=== PATIENT | male | born 1930 | race Caucasian/White ===

== ENCOUNTER → 2016-08-04 | Outpatient (CLI) | payer MEDICARE ==
[~2016-08-04] MED LIST: OFLO.3%A AD
[2016-08-04 10:55] LABS: HEMATOCRIT 42.9 % (39.0-51.0); MEAN CORPUSCULAR HEMOGLOBIN 30.6 PG (27.0-34.0); MEAN CORPUSCULAR HGB CONC 33.6 % (32.0-36.0); PLATELET COUNT 210 TH/MM3 (150-450); RED BLOOD COUNT 4.72 MIL/MM3 (4.50-5.90); REVIEW FLAG FINAL; WHITE BLOOD COUNT 6.7 TH/MM3 (4.0-11.0)
[2016-08-04 11:32] LABS: ALKALINE PHOSPHATASE 75 U/L (45-117); ALT (GPT) 22 U/L (12-78); ANION GAP 5 MEQ/L (5-15); AST (GOT) 27 U/L (15-37); BICARBONATE 30.8 MEQ/L (21.0-32.0); BLOOD UREA NITROGEN 22 MG/DL (7-18); CHLORIDE 105 MEQ/L (98-107); GLOMERULAR FILTRATION RATE 64 ML/MIN (>89); GLUCOSE,FASTING 86 MG/DL (74-99); HDL CHOLESTEROL 58.7 MG/DL (40.0-60.0); LDL CHOLESTEROL 119 MG/DL (0-99); POTASSIUM 4.2 MEQ/L (3.5-5.1); SODIUM (NA) 141 MEQ/L (136-145); TOTAL BILIRUBIN ADULT 0.7 MG/DL (0.2-1.0)
== END ==
LOC: PLAB 08:07
PROVIDERS: ATTEND Family Medicine
DX: E78.4 Other hyperlipidemia (principal); C61 Malignant neoplasm of prostate; C18.9 Malignant neoplasm of colon, unspecified; I83.10 Varicose veins of unspecified lower extremity with inflammation
CPT/HCPCS: 36415; 80053; 80061; 84443; 85027

== ENCOUNTER → 2017-02-04 | Outpatient (CLI) | payer MEDICARE ==
[2017-02-04 13:35] LABS: HEMATOCRIT 45.1 % (39.0-51.0); MEAN CELL VOLUME 94.4 FL (80.0-100.0); MEAN CORPUSCULAR HGB CONC 32.8 % (32.0-36.0); PLATELET COUNT 281 TH/MM3 (150-450); RED BLOOD COUNT 4.78 MIL/MM3 (4.50-5.90); RED CELL DISTRIBUTION WIDTH 14.6 % (11.6-17.2); REVIEW FLAG FINAL
[2017-02-04 14:06] LABS: ANION GAP 8 MEQ/L (5-15); AST (GOT) 23 U/L (15-37); BICARBONATE 29.5 MEQ/L (21.0-32.0); BLOOD UREA NITROGEN 13 MG/DL (7-18); CHLORIDE 101 MEQ/L (98-107); GLOMERULAR FILTRATION RATE 79 ML/MIN (>89); GLUCOSE,FASTING 87 MG/DL (74-99); POTASSIUM 4.6 MEQ/L (3.5-5.1); SODIUM (NA) 138 MEQ/L (136-145)
[2017-02-04 14:19] LABS: ALKALINE PHOSPHATASE 70 U/L (45-117); ALT (GPT) 23 U/L (12-78); HDL CHOLESTEROL 58.5 MG/DL (40.0-60.0); LDL CHOLESTEROL 125 MG/DL (0-99); TOTAL BILIRUBIN ADULT 0.6 MG/DL (0.2-1.0)
== END ==
LOC: PLAB 08:09
PROVIDERS: ATTEND Family Medicine
DX: E78.4 Other hyperlipidemia (principal); C61 Malignant neoplasm of prostate; C18.9 Malignant neoplasm of colon, unspecified; I83.10 Varicose veins of unspecified lower extremity with inflammation
CPT/HCPCS: 36415; 80053; 80061; 84443; 85027

== ENCOUNTER → 2017-03-07 | Outpatient (CLI) | payer MEDICARE ==
[2017-03-07 14:55] LABS: FREE T3 2.85 PG/ML (2.18-3.98); FREE T4 0.97 NG/DL (0.76-1.46)
[2017-03-10 23:51] LABS: THYROGLOB ABS 1 IU/mL (< OR = 1)
== END ==
LOC: CLAB 13:54
PROVIDERS: ATTEND Family Medicine
DX: R94.6 Abnormal results of thyroid function studies (principal); C18.9 Malignant neoplasm of colon, unspecified; Z12.5 Encounter for screening for malignant neoplasm of prostate
CPT/HCPCS: 36415; 84153; 84439; 84443; 84481; 86376; 86800

== ENCOUNTER → 2017-07-06 | Outpatient (CLI) | payer MEDICARE ==
[~2017-07-06] MED LIST changes: +ASPI81CH6 PO
[2017-07-06 18:18] LABS: AUTOMATED NEUTROPHIL # 5.8 TH/MM3 (1.8-7.7); BASOPHIL % 0.3 % (0.0-2.0); EOSINOPHIL # 0.2 TH/MM3 (0-0.4); EOSINOPHIL % 2.6 % (0.0-4.0); HEMATOCRIT 43.7 % (39.0-51.0); HEMOGLOBIN 14.7 GM/DL (13.0-17.0); LYMPHOCYTE # 1.6 TH/MM3 (1.0-4.8); MEAN CELL VOLUME 92.4 FL (80.0-100.0); MEAN CORPUSCULAR HEMOGLOBIN 31.1 PG (27.0-34.0); MEAN CORPUSCULAR HGB CONC 33.7 % (32.0-36.0); MEAN PLATELET VOLUME 8.7 FL (7.0-11.0); MONO % 9.1 % (0.0-8.0); MONOCYTE # 0.8 TH/MM3 (0-0.9); PLATELET COUNT 268 TH/MM3 (150-450); RED BLOOD COUNT 4.73 MIL/MM3 (4.50-5.90); WHITE BLOOD COUNT 8.3 TH/MM3 (4.0-11.0)
[2017-07-06 18:36] LABS: ALBUMIN 3.8 GM/DL (3.4-5.0); AST (GOT) 19 U/L (15-37); BICARBONATE 29.8 MEQ/L (21.0-32.0); BLOOD UREA NITROGEN 18 MG/DL (7-18); CALCIUM 9.7 MG/DL (8.5-10.1); CHLORIDE 101 MEQ/L (98-107); CREATININE 1.18 MG/DL (0.60-1.30); GLOMERULAR FILTRATION RATE 59 ML/MIN (>89); GLUCOSE,FASTING 84 MG/DL (74-99); SODIUM (NA) 137 MEQ/L (136-145)
[2017-07-06 18:39] LABS: ALKALINE PHOSPHATASE 70 U/L (45-117); ALT (GPT) 16 U/L (12-78); TOTAL BILIRUBIN ADULT 0.7 MG/DL (0.2-1.0); TOTAL PROTEIN 8.3 GM/DL (6.4-8.2)
== END ==
LOC: PLAB 12:25
PROVIDERS: ATTEND Physician Assistant Medical
DX: R19.7 Diarrhea, unspecified (principal); R10.30 Lower abdominal pain, unspecified
CPT/HCPCS: 36415; 80053; 85025

== ENCOUNTER 2017-07-07 14:25 | Inpatient (IN) | payer MEDICARE ==
[~2017-07-07] VITALS: Ht 190.5 cm; Wt 70.8 kg
[~2017-07-07 14:25] MED LIST changes: -ASPI81CH6 PO
[2017-07-07 14:30] VITALS: BP 145/74; PULSE 103; RESP 16; TEMP 97.9; O2SAT 93
--- NOTE | 2017-07-07 14:52 | PD ---
HPI Chief Complaint: Abdominal Pain Time Seen by Provider: 14:51 Travel History International Travel<30 days: No Contact w/Intl Traveler<30days: No Traveled to known affect area: No History of Present Illness HPI 86-year-old male came to the emergency room with history of nausea, vomiting and diarrhea for past 3-4 days. Patient had a colonoscopy 10 days ago and the student services dean noted some diverticulosis and diverticulitis. Patient was put on Augmentin for 5 days. Patient says he finished taking the course of Augmentin and after that his symptoms started. He is feeling very bloated and abdomen looks distended. As per the he has not had any appetite since Tuesday. His last vomit was last night. But he has not eaten anything since then. Patient had slight tachycardia upon arrival. Patient just complains of some discomfort of his abdomen but no severe pain. He is awake and answering questions appropriately. PFSH Past Medical History Narrative Medical List of his past medical, surgical, social and family history is reviewed from the nursing note Hx Anticoagulant Therapy: Yes (asa 81mg) Cancer: Yes (PROSTATE, COLON, SKIN) Cardiovascular Problems: No Diabetes: No Diminished Hearing: Yes (hearing aids) Endocrine: No Genitourinary: No Hepatitis: No Hiatal Hernia: No Immune Disorder: No Musculoskeletal: Yes (NECK RESTRICTED MOTION) Neurologic: No Psychiatric: No Reproductive: No Respiratory: No Thyroid Disease: No Past Surgical History Abdominal Surgery: Yes (PARTIAL TRANSVERSE COLON RESECTION) AICD: No Joint Replacement: No Oral Surgery: Yes (TONSILLECTOMY) Pacemaker: No Other Surgery: Yes Social History Alcohol Use: Yes (occ) Tobacco Use: No Substance Use: No Allergies-Medications (Allergen,Severity, Reaction): Coded Allergies: No Known Allergies (Verified Adverse Reaction, Unknown, 07/07/17) Comments No known drug allergies per Reported Meds & Prescriptions Reported Meds & Active Scripts Active Reported Aspirin Low Dose (Aspirin) 81 Mg Chew 81 Mg PO DAILY Narrative Medication List of his home medications reviewed from the nursing note. Review of Systems Except as stated in HPI: all other systems reviewed are Neg Gastrointestinal: Positive: Nausea, Vomiting, Diarrhea Physical Exam Narrative GENERAL: Awake, alert, moderate distress SKIN: Focused skin assessment warm/dry. HEAD: Atraumatic. Normocephalic. EYES: Pupils equal and round. No scleral icterus. No injection or drainage. ENT: No nasal bleeding or discharge. Dry mucous membrane. NECK: Trachea midline. No JVD. CARDIOVASCULAR: Regular rate and rhythm. No murmur appreciated. RESPIRATORY: No accessory muscle use. Clear to auscultation. Breath sounds equal bilaterally. GASTROINTESTINAL: Abdomen soft, significantly distended. Hepatic and splenic margins not palpable. MUSCULOSKELETAL: No obvious deformities. No clubbing. No cyanosis. No edema. NEUROLOGICAL: Awake and alert. No obvious cranial nerve deficits. Motor grossly within normal limits. Normal speech. PSYCHIATRIC: Appropriate mood and affect; insight and judgment normal. Data Data Last Documented VS Vital Signs Date Time Temp Pulse Resp B/P (MAP) Pulse Ox O2 Delivery O2 Flow Rate FiO2 07/07/17 16:11 Nasal Cannula 2.00 07/07/17 16:10 85 16 120/62 (81) 88 07/07/17 14:30 97.9 Orders Orders Complete Blood Count With Diff (07/07/17 15:20) Comprehensive Metabolic Panel (07/07/17 15:20) Lipase (07/07/17 15:20) Urinalysis - C+S If Indicated (07/07/17 15:20) Ct Abd/Pel W/O Iv Contrast (07/07/17 15:20) Iv Access Insert/Monitor (07/07/17 15:20) Ecg Monitoring (07/07/17 15:20) Oximetry (07/07/17 15:20) Ondansetron Inj (Zofran Inj) (07/07/17 15:30) Sodium Chlor 0.9% 1000 Ml Inj (Ns 1000 M (07/07/17 15:20) Sodium Chloride 0.9% Flush (Ns Flush) (07/07/17 15:30) Admit Order (Ed Use Only) (07/07/17 17:43) Lidocaine 2% Jelly (Xylocaine 2% Jelly) (07/07/17 17:45) Labs Laboratory Tests Test 07/07/17 15:50 White Blood Count 7.3 TH/MM3 Red Blood Count 4.55 MIL/MM3 Hemoglobin 13.7 GM/DL Hematocrit 41.2 % Mean Corpuscular Volume 90.6 FL Mean Corpuscular Hemoglobin 30.1 PG Mean Corpuscular Hemoglobin Concent 33.2 % Red Cell Distribution Width 13.3 % Platelet Count 256 TH/MM3 Mean Platelet Volume 7.9 FL Neutrophils (%) (Auto) 68.9 % Lymphocytes (%) (Auto) 17.1 % Monocytes (%) (Auto) 9.3 % Eosinophils (%) (Auto) 4.1 % Basophils (%) (Auto) 0.6 % Neutrophils # (Auto) 5.0 TH/MM3 Lymphocytes # (Auto) 1.3 TH/MM3 Monocytes # (Auto) 0.7 TH/MM3 Eosinophils # (Auto) 0.3 TH/MM3 Basophils # (Auto) 0.0 TH/MM3 CBC Comment DIFF FINAL Differential Comment Urine Collection Type CLEAN CATCH Urine Color YELLOW Urine Turbidity CLEAR Urine pH 5.5 Urine Specific [place] 1.020 Urine Protein TRACE mg/dL Urine Glucose (UA) NEG mg/dL Urine Ketones NEG mg/dL Urine Occult Blood TRACE Urine Nitrite NEG Urine Bilirubin NEG Urine Urobilinogen 0.2 MG/DL Urine Leukocyte Esterase NEG Urine RBC 0-3 /hpf Urine WBC 0-2 /hpf Urine Squamous Epithelial Cells 6-8 /hpf Urine Renal Epithelial Cells 0-5 /hpf Microscopic Urinalysis Comment CULT NOT INDICATED Urine Collection Time 15:50 Blood Urea Nitrogen 16 MG/DL Creatinine 0.99 MG/DL Random Glucose 101 MG/DL Total Protein 7.6 GM/DL Albumin 3.3 GM/DL Calcium Level 9.2 MG/DL Alkaline Phosphatase 76 U/L Aspartate Amino Transf (AST/SGOT) 13 U/L Alanine Aminotransferase (ALT/SGPT) 13 U/L Total Bilirubin 0.6 MG/DL Sodium Level 134 MEQ/L Potassium Level 3.9 MEQ/L Chloride Level 100 MEQ/L Carbon Dioxide Level 27.4 MEQ/L Anion Gap 7 MEQ/L Estimat Glomerular Filtration Rate 72 ML/MIN Lipase 68 U/L [facility] Medical Decision Making Medical Screen Exam Complete: Yes Emergency Medical Condition: Yes Medical Record Reviewed: Yes Differential Diagnosis Small bowel obstruction, C. difficile colitis, dehydration, electrolyte abnormality Narrative Course 5:25 PM patient was given 1 L of IV fluid bolus. CT scan shows significantly distended bowel loops with the possibility of small bowel obstruction versus ileus. Blood test results are back and within acceptable limits. I have ordered for an NG tube. Patient will require to be admitted. Awaiting for the hospitalist callback. Procedures EKG Prior to Arrival: No Diagnosis Primary Impression: Small bowel obstruction Admitting Information Admitting Physician Requests: Admit Adalid Infante MD Jul 07, 2017 14:52
[2017-07-07] MEDS ORDERED: ASPI81CH6 PO (14:58)
[2017-07-07 15:11] VITALS: O2SAT 95
[2017-07-07] MEDS ORDERED: SODIUM CHLOR 0.9% 1000 ML INJ 1,000 ML IV SCH (15:20)
[2017-07-07] MEDS ORDERED: ONDANSETRON HCL 4 MG/2 ML VIAL IVP ONE (15:30)
[2017-07-07] MEDS ORDERED: SODIUM CHLORIDE 0.9% FLUSH 10 ML FLUSH IV FLUSH PRN (15:30)
[2017-07-07 16:05] LABS: BILIRUBIN, URINE NEG (NEG); BLOOD, URINE TRACE (NEG); GLUCOSE,URINE NEG (NEG); KETONE, URINE NEG (NEG); NITRITE,URINE NEG (NEG); PH, URINE 5.5 (5.0-8.5); URINE COLOR YELLOW (YELLW/STRAW); URINE LEUKOCYTE ESTERASE NEG (NEG)
[2017-07-07 16:08] LABS: BASOPHIL % 0.6 % (0.0-2.0); EOSINOPHIL # 0.3 TH/MM3 (0-0.4); EOSINOPHIL % 4.1 % (0.0-4.0); HEMATOCRIT 41.2 % (39.0-51.0); HEMOGLOBIN 13.7 GM/DL (13.0-17.0); LYMPH % 17.1 % (9.0-44.0); LYMPHOCYTE # 1.3 TH/MM3 (1.0-4.8); MEAN CELL VOLUME 90.6 FL (80.0-100.0); MEAN CORPUSCULAR HEMOGLOBIN 30.1 PG (27.0-34.0); MEAN CORPUSCULAR HGB CONC 33.2 % (32.0-36.0); MEAN PLATELET VOLUME 7.9 FL (7.0-11.0); MONO % 9.3 % (0.0-8.0); MONOCYTE # 0.7 TH/MM3 (0-0.9); NEUT % 68.9 % (16.0-70.0); PLATELET COUNT 256 TH/MM3 (150-450); RED BLOOD COUNT 4.55 MIL/MM3 (4.50-5.90); RED CELL DISTRIBUTION WIDTH 13.3 % (11.6-17.2); WHITE BLOOD COUNT 7.3 TH/MM3 (4.0-11.0)
[2017-07-07 16:10] VITALS: BP 120/62; PULSE 85; RESP 16; O2SAT 88
[2017-07-07 16:15] LABS: RBC, URINE 0-3 /hpf (0-3); RENAL EPITHELIAL CELLS 0-5 /hpf; WBC, URINE 0-2 /hpf (0-5)
[2017-07-07 16:20] LABS: CHLORIDE 100 MEQ/L (98-107); SODIUM (NA) 134 MEQ/L (136-145)
[2017-07-07 16:22] LABS: CALCIUM 9.2 MG/DL (8.5-10.1)
[2017-07-07 16:23] LABS: ALBUMIN 3.3 GM/DL (3.4-5.0); BICARBONATE 27.4 MEQ/L (21.0-32.0); BLOOD UREA NITROGEN 16 MG/DL (7-18); GLUCOSE,RANDOM 101 MG/DL (74-106)
[2017-07-07 16:26] LABS: ALT (GPT) 13 U/L (12-78); AST (GOT) 13 U/L (15-37); CREATININE 0.99 MG/DL (0.60-1.30); GLOMERULAR FILTRATION RATE 72 ML/MIN (>89)
[2017-07-07 16:27] LABS: TOTAL PROTEIN 7.6 GM/DL (6.4-8.2)
[2017-07-07 16:29] LABS: ALKALINE PHOSPHATASE 76 U/L (45-117)
[2017-07-07 16:39] LABS: TOTAL BILIRUBIN ADULT 0.6 MG/DL (0.2-1.0)
--- NOTE | 2017-07-07 16:48 | RADRPT ---
EXAM DATE/TIME: 07/07/2017 16:14 [facility] COMPARISON: No previous studies available for comparison. INDICATIONS : Mid abdominal pain x 1 week. Diarrhea. ORAL CONTRAST: No oral contrast ingested. RADIATION DOSE: 11.92 CTDIvol (mGy) MEDICAL HISTORY : Carcinoma, colon. Carcinoma, prostate. Pulmonary embolism. SURGICAL HISTORY : Colon resection. Appendectomy. ENCOUNTER: Initial ACUITY: 1 week PAIN SCALE: 6/10 LOCATION: Mid abdomen TECHNIQUE: Volumetric scanning of the abdomen and pelvis was performed. Using automated exposure control and ad justment of the mA and/or kV according to patient size, radiation dose was kept as low as reasonably achievable to obtain optimal diagnostic quality images. DICOM format image data is available electro nically for review and comparison. FINDINGS: LOWER LUNGS: Scattered emphysematous changes are noted bilaterally. LIVER: Homogeneous density without lesion. There is no dilation of the biliary tree. Calcified gallstones a re noted within the gallbladder. SPLEEN: Normal size without lesion. PANCREAS: Within normal limits. KIDNEYS: Normal in size and shape. There is no mass, stone, or hydronephrosis. ADRENAL GLANDS: Within normal limits. VASCULAR: There is no aortic aneurysm. BOWEL/MESENTERY: Multiple fluid-filled dilated loops of small bowel are noted suggesting small bowel obstruction or il eus. Clinical correlation is recommended. Uncomplicated colonic diverticulosis is noted. ABDOMINAL WALL: Within normal limits. RETROPERITONEUM: There is no lymphadenopathy. BLADDER: No wall thickening or mass. REPRODUCTIVE: Within normal limits. INGUINAL: There is no lymphadenopathy or hernia. MUSCULOSKELETAL: Degenerative changes and scoliosis of lumbar spine are noted. CONCLUSION: 1. Diffuse fluid-filled dilated loops of small bowel are noted suggesting small bowel obstruction or ileus. Clinical correlation is recommended. 2. Uncomplicated colonic diverticulosis. 3. Cholelithiasis. 4. Degenerative changes and scoliosis of the lumbar spine. 5. Emphysematous changes within the lung bases. Hiram Winston MD on July 07, 2017 at 16:39 Board Certified Radiologist. This report was verified electronically.
[2017-07-07] MEDS ORDERED: LIDOCAINE 2% JELLY 30 ML TUBE TOPICAL ONE (17:45)
--- NOTE | 2017-07-07 18:25 | HHI.HP ---
[facility] Nuzhat Garcia MD Admission Diagnosis Small bowel obstruct Diagnoses: (1) Small bowel obstruction Diagnosis: Principal Chief Complaint: Abdominal pain Travel History International Travel<30 Days: No Contact w/Intl Traveler <30 Da: No Traveled to Known Affected Are: No History of Present Illness 86-year-old male with known history of colon cancer, prostate cancer who presented to the emergency department because abdominal pain, bloating. Patient states that on June 20 he underwent colonoscopy with Dr. Pacheco. Patient underwent prep with mag citrate at that time. He was found to have diverticulosis and was started on antibiotics. Shortly after he completed the antibiotics which was roughly 6 days ago he started developing abdominal pain, bloating. He was passing gas and then he started developing some bowel incontinence and then watery diarrhea. He states that his last bowel movement was 2 days ago. On Tuesday he did have one episode of nausea vomiting which made him feel much better. He has had decreased appetite, not eating that well. Because of the pain was pressure getting worse she came to emergency department for evaluation. Patient had workup done and found to have significant small bowel obstruction. It was recommended by the ER physician the patient be admitted for further evaluation and management. Review of Systems Gastrointestinal: COMPLAINS OF: Abdominal pain Except as stated in HPI: all other systems reviewed are Neg Past Family Social History Past Medical History History of colon cancer status post colon resection History of prostate cancer status post radiation Past Surgical History Colonoscopy on June 20 Transverse colon resection Tonsillectomy Right arm fracture Reported Medications Reported Meds & Active Scripts Active Reported Aspirin Low Dose (Aspirin) 81 Mg Chew 81 Mg PO DAILY Allergies: Coded Allergies: No Known Allergies (Verified Adverse Reaction, Unknown, 07/07/17) Family History Reviewed and significant for mother from bladder cancer, father from lung cancer Social History Patient quit smoking 1980 prior to that he smoked one quarter pack of cigarettes a day since he was 18 years old. He does drink 1 ounce of alcohol daily. Denies any illicit drug Physical Exam Vital Signs Vital Signs Date Time Temp Pulse Resp B/P (MAP) Pulse Ox O2 Delivery O2 Flow Rate FiO2 4/12/18 16:11 Nasal Cannula 2.00 07/07/17 16:10 85 16 120/62 (81) 88 Room Air 07/07/17 15:11 95 Room Air 07/07/17 14:30 97.9 103 16 145/74 (97) 93 Physical Exam GENERAL: Well-developed, well-nourished, in no acute distress. alert and orientated HEENT: Head is normocephalic without any lesions or masses noted. Facial features are symmetric. Eyes: Pupils equal round reactive to light. Extraocular muscles are intact. Conjunctivae were clear. Oropharyngeal: Pharynx without any erythema edema. Tongue is midline without deviation. Buccal mucosa is moist without any masses or lesions NECK: Supple without any masses. Trachea midline no deviation. No JVD, no bruits are appreciated CARDIAC: Regular rhythm, regular rate. S1/S2 are heard. No murmurs gallops or rubs. LUNGS: Clear to auscultation bilaterally. No wheeze, rhonchi or rales. No use of accessory muscles on inspiration or expiration. ABDOMEN: Soft, mild diffuse tenderness. Abdominal distention, however not tight distention at this time. Absent bowel sounds. Hyperresonant to percussion. No organomegaly or masses. Negative rebound, negative guarding EXTREMITIES: No edema, pulses are equal bilaterally. No cyanosis or clubbing NEUROLOGY: Mood and affect appear appropriate. Cranial nerves II through XII grossly intact. Muscle strength 5/5 in upper and lower extremities bilaterally. Deep tendon reflexes are 2+ in upper and lower extremities bilaterally. Laboratory Laboratory Tests Test 07/07/17 15:50 White Blood Count 7.3 Red Blood Count 4.55 Hemoglobin 13.7 Hematocrit 41.2 Mean Corpuscular Volume 90.6 Mean Corpuscular Hemoglobin 30.1 Mean Corpuscular Hemoglobin Concent 33.2 Red Cell Distribution Width 13.3 Platelet Count 256 Mean Platelet Volume 7.9 Neutrophils (%) (Auto) 68.9 Lymphocytes (%) (Auto) 17.1 Monocytes (%) (Auto) 9.3 Eosinophils (%) (Auto) 4.1 Basophils (%) (Auto) 0.6 Neutrophils # (Auto) 5.0 Lymphocytes # (Auto) 1.3 Monocytes # (Auto) 0.7 Eosinophils # (Auto) 0.3 Basophils # (Auto) 0.0 CBC Comment DIFF FINAL Differential Comment Urine Collection Type CLEAN CATCH Urine Color YELLOW Urine Turbidity CLEAR Urine pH 5.5 Urine Specific [place] 1.020 Urine Protein TRACE Urine Glucose (UA) NEG Urine Ketones NEG Urine Occult Blood TRACE Urine Nitrite NEG Urine Bilirubin NEG Urine Urobilinogen 0.2 Urine Leukocyte Esterase NEG Urine RBC 0-3 Urine WBC 0-2 Urine Squamous Epithelial Cells 6-8 Urine Renal Epithelial Cells 0-5 Microscopic Urinalysis Comment CULT NOT INDICATED Urine Collection Time 15:50 Blood Urea Nitrogen 16 Creatinine 0.99 Random Glucose 101 Total Protein 7.6 Albumin 3.3 Calcium Level 9.2 Alkaline Phosphatase 76 Aspartate Amino Transf (AST/SGOT) 13 Alanine Aminotransferase (ALT/SGPT) 13 Total Bilirubin 0.6 Sodium Level 134 Potassium Level 3.9 Chloride Level 100 Carbon Dioxide Level 27.4 Anion Gap 7 Estimat Glomerular Filtration Rate 72 Lipase 68 Result Diagram: 07/07/17 1550 07/07/17 1550 Caprini VTE Risk Assessment Caprini VTE Risk Assessment: Mod/High Risk (score >= 2) Caprini Risk Assessment Model Point Value = 1 Point Value = 2 Point Value = 3 Point Value = 5 Age 41-60 Minor surgery BMI > 25 kg/m2 Swollen legs Varicose veins or History of unexplained or recurrent spontaneous Oral contraceptives or hormone replacement Sepsis (< 1 month) Serious lung disease, including pneumonia (< 1 month) Abnormal pulmonary function Acute myocardial infarction Congestive heart failure (< 1 month) History of inflammatory bowel disease Medical patient at bed rest Age 61-74 Arthroscopic surgery Major open surgery (> 45 min) Laparoscopic surgery (> 45 min) Malignancy Confined to bed (> 72 hours) Immobilizing plaster cast Central venous access Age >= 75 History of VTE Family history of VTE Factor V Leiden Prothrombin [id number] Lupus anticoagulant Anticardiolipin antibodies Elevated serum homocysteine Heparin-induced thrombocytopenia Other congenital or acquired thrombophilia Stroke (< 1 month) Elective arthroplasty Hip, pelvis, or leg fracture Acute spinal cord injury (< 1 month) Prophylaxis Regimen Total Risk Factor Score Risk Level Prophylaxis Regimen 0-1 Low Early ambulation 2 Moderate Order ONE of the following: *Sequential Compression Device (SCD) *Heparin 5000 units SQ BID 3-4 Higher Order ONE of the following medications: *Heparin 5000 units SQ TID *Enoxaparin/Lovenox 40 mg SQ daily (WT < 150 kg, CrCl > 30 mL/min) *Enoxaparin/Lovenox 30 mg SQ daily (WT < 150 kg, CrCl > 10-29 mL/min) *Enoxaparin/Lovenox 30 mg SQ BID (WT < 150 kg, CrCl > 30 mL/min) AND/OR *Sequential Compression Device (SCD) 5 or more Highest Order ONE of the following medications: *Heparin 5000 units SQ TID (Preferred with Epidurals) *Enoxaparin/Lovenox 40 mg SQ daily (WT < 150 kg, CrCl > 30 mL/min) *Enoxaparin/Lovenox 30 mg SQ daily (WT < 150 kg, CrCl > 10-29 mL/min) *Enoxaparin/Lovenox 30 mg SQ BID (WT < 150 kg, CrCl > 30 mL/min) AND *Sequential Compression Device (SCD) Assessment and Plan Assessment and Plan Small bowel obstruction Patient just recently had colonoscopy and history of colon resection which are possible etiologies of his bowel obstruction Will keep n.p.o. ER physician already placed NG tube Continue IV fluids Continue IV pain control Consult general surgery Consult Dr. Pacheco, patient is known to him DVT prevention Sequential compression devices Physician Certification 2 Midnight Certification Type: Admission for Inpatient Services Order for Inpatient Services The services are ordered in accordance with Medicare regulations or non- Medicare payer requirements, as applicable. In the case of services not specified as inpatient-only, they are appropriately provided as inpatient services in accordance with the 2-midnight benchmark. Estimated LOS (days): 2 days is the estimated time the patient will need to remain in the hospital, assuming treatment plan goals are met and no additional complications. Post-Hospital Plan: Not yet determined Mau Simms Jul 07, 2017 18:25
[2017-07-07] MEDS ORDERED: ACETAMINOPHEN 650 MG SUPP RECTAL PRN (18:30)
[2017-07-07] MEDS ORDERED: MORPHINE SULFATE 4 MG/ML INJ IV PUSH PRN (18:30)
[2017-07-07] MEDS ORDERED: ONDANSETRON HCL 4 MG/2 ML VIAL IV PUSH PRN (18:30)
[2017-07-07 18:58] VITALS: BP 123/64; PULSE 75; RESP 16; O2SAT 94
[2017-07-07] MEDS: FAMOTIDINE 20 MG/2 ML VIAL IV PUSH SCH (19:23)
[2017-07-07] MEDS: NS + KCL 20 MEQ INJ 1,000 ML IV SCH (19:24)
[2017-07-07 20:15] VITALS: BP 145/78; PULSE 82; RESP 20; TEMP 97.2; O2SAT 96
[2017-07-07] MEDS ORDERED: PHENOL 1.4% SOLN 180 ML BTL OROPHARYNG PRN (21:45)
[2017-07-08] VITALS: BP 138/77; PULSE 82; RESP 20; TEMP 96.9; O2SAT 96
[2017-07-08] MEDS: NS + KCL 20 MEQ INJ 1,000 ML IV SCH ×2 (06:15→12:49)
[2017-07-08 06:29] LABS: AUTOMATED NEUTROPHIL # 5.1 TH/MM3 (1.8-7.7); BASOPHIL % 0.2 % (0.0-2.0); EOSINOPHIL # 0.2 TH/MM3 (0-0.4); EOSINOPHIL % 3.5 % (0.0-4.0); HEMATOCRIT 41.1 % (39.0-51.0); HEMOGLOBIN 13.7 GM/DL (13.0-17.0); LYMPH % 14.9 % (9.0-44.0); MEAN CELL VOLUME 91.3 FL (80.0-100.0); MEAN CORPUSCULAR HEMOGLOBIN 30.4 PG (27.0-34.0); MEAN CORPUSCULAR HGB CONC 33.3 % (32.0-36.0); MEAN PLATELET VOLUME 8.5 FL (7.0-11.0); MONO % 9.1 % (0.0-8.0); MONOCYTE # 0.6 TH/MM3 (0-0.9); NEUT % 72.3 % (16.0-70.0); PLATELET COUNT 235 TH/MM3 (150-450); RED CELL DISTRIBUTION WIDTH 13.1 % (11.6-17.2); WHITE BLOOD COUNT 6.9 TH/MM3 (4.0-11.0)
[2017-07-08 06:38] LABS: CALCIUM 8.5 MG/DL (8.5-10.1)
[2017-07-08 06:39] LABS: BICARBONATE 26.8 MEQ/L (21.0-32.0)
[2017-07-08 06:42] LABS: CREATININE 0.89 MG/DL (0.60-1.30)
[2017-07-08 07:35] VITALS: BP 122/74; PULSE 79; RESP 18; TEMP 97.5; O2SAT 96
--- NOTE | 2017-07-08 08:43 | HHI.PR ---
Subjective Remarks Patient seen and examined today for follow-up on small bowel obstruction. Patient states that he is doing much better. Pain is controlled. He feels that he has the urge to have a bowel movement, however it was only gas. Abdominal distention has improved. Vital signs are stable, patient remains afebrile. Objective Vitals Vital Signs Date Time Temp Pulse Resp B/P (MAP) Pulse Ox O2 Delivery O2 Flow Rate FiO2 07/08/17 00:00 96.9 82 20 138/77 (97) 96 07/07/17 20:15 97.2 82 20 145/78 (100) 96 07/07/17 18:58 75 16 123/64 (83) 94 Nasal Cannula 2.00 07/07/17 16:11 Nasal Cannula 2.00 07/07/17 16:10 85 16 120/62 (81) 88 Room Air 07/07/17 15:11 95 Room Air 07/07/17 14:30 97.9 103 16 145/74 (97) 93 I/O 07/07/17 07/07/17 07/07/17 07/08/17 07/08/17 07/08/17 07:00 15:00 23:00 07:00 15:00 23:00 Intake Total 1000 ml 1000 ml Output Total 400 ml 325 ml Balance 600 ml 675 ml Intake Oral 0 ml IV Total 1000 ml 1000 ml Output Urine Total 200 ml 325 ml Gastric Drainage Total 200 ml # Voids 2 # Bowel Movements 0 Result Diagram: 07/08/17 0517 07/08/17 0517 Objective Remarks GENERAL: Well-developed, well-nourished, in no acute distress. alert and orientated HEENT: Head is normocephalic without any lesions or masses noted. Facial features are symmetric. Eyes: Extraocular muscles are intact. Conjunctivae were clear. NG tube in place NECK: Supple without any masses. Trachea midline no deviation. No JVD, no bruits are appreciated CARDIAC: Regular rhythm, regular rate. S1/S2 are heard. No murmurs gallops or rubs. LUNGS: Clear to auscultation bilaterally. No wheeze, rhonchi or rales. No use of accessory muscles on inspiration or expiration. ABDOMEN: Soft, nontender. No distention, bowel sounds heard in all 4 quadrants. No organomegaly or masses. Negative rebound, negative guarding EXTREMITIES: No edema, pulses are equal bilaterally. No cyanosis or clubbing NEUROLOGY: Mood and affect appear appropriate. Cranial nerves II through XII grossly intact. Moving all extremities, speech is clear Urinary Catheter: No Vascular Central Line Catheter: No A/P Assessment and Plan Small bowel obstruction Patient just recently had colonoscopy and history of colon resection which are possible etiologies of his bowel obstruction Advance to full liquid diet per surgery NG tube clamped per surgery Continue IV fluids Continue IV pain control Consulted general surgery who evaluated patient and is continuing to follow Consult Dr. Pacheco, patient is known to him Flat and upright abdominal x-rays indicates Significant interval improvement of diffuse ileus compared to the previous day's examination DVT prevention Sequential compression devices Discharge Planning Discharge planning 24-48 hours if patient continues to improve Mau Simms Jul 08, 2017 08:43
[2017-07-08] MEDS: FAMOTIDINE 20 MG/2 ML VIAL IV PUSH SCH ×2 (09:00→21:00)
--- NOTE | 2017-07-08 09:29 | MB ---
cc: Amadou Read MD DATE: 07/08/2017 REASON FOR CONSULTATION: Small-bowel obstruction. HISTORY OF PRESENT ILLNESS: This is a pleasant, elderly 86-year-old gentleman who underwent a colonoscopy about [address] Pacheco. At that time, he apparently was found to have some mild diverticulitis, was given an antibiotic to take 3 times a day. After he completed that, he then began experiencing some nausea, vomiting, diarrhea, loose bowel movement, abdominal cramping. It progressively got worse with his vomiting. He came to the emergency room. A CT scan was done, which showed a small-bowel obstruction. NG tube was placed. Surgery was consulted for evaluation of a small-bowel obstruction. Since being in the hospital, he has had 200 mL out of his gastric tube and passed a little flatus and has the urge to have a bowel movement. REVIEW OF SYSTEMS: He has no chest pain, no shortness of breath, no cardiac history. 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 Robert Spangler, the frame bander. He stopped his blood thinners at that time because what sounds like a CTA was negative. No problems. He has had some skin cancers in the past. [facility] transverse colon resection for colon cancer ALLERGIES: NO KNOWN DRUG ALLERGIES. MEDICATIONS: He takes just an aspirin a day. PHYSICAL EXAMINATION: GENERAL: Alert, pleasant, elderly gentleman in no apparent distress. HEENT: Has an NG tube in. NECK: Supple. CHEST: Clear. HEART: Regular rate. ABDOMEN: Thin, soft with a transverse incision just below the umbilicus. It is well healed. There is no rebound or guarding and no abdominal masses. EXTREMITIES: Moves all extremities well. No clubbing, cyanosis or edema. LABORATORY DATA: He has a white count of 6, H and H of 13 and 41. Chemistry is essentially normal. He had a lipase of 68 yesterday. Urinalysis is clear. IMAGING STUDIES: CT scan of his abdomen shows some dilated loops of bowel, question ileus versus small bowel obstruction. He does have uncomplicated diverticulosis and cholelithiasis as well and some emphysema of the lungs. ASSESSMENT: An 86-year-old gentleman with a history of colon cancer, status post colon resection in the distant past in the early . He had a recent colonoscopy that just showed some diverticulosis, diverticulitis, recently treated with antibiotics. He had a bout of nausea, vomiting and diarrhea that has seemed to have resolved. He had a CT scan suggesting questionable ileus versus small bowel obstruction. Pt has gallstones seen on ct -- no symptoms PLAN: At this time, I believe he just has an ileus and may be a reaction to the antibiotics that he just completed. At this time we will await the KUB. I will clamp was NG tube, give him some sips of clears. I suspect he should clear and be able to be stable for discharge by 24 hours. Amadou Read MD JDB/ALICE , 07:45 AM , 09:28 AM SAE
--- NOTE | 2017-07-08 09:40 | RADRPT ---
EXAM DATE/TIME: 07/08/2017 08:14 [facility] COMPARISON: CT ABDOMEN & PELVIS W/O CONTRAST, July 07, 2017, 16:14. INDICATIONS : Abdominal distention. Follow up ileus seen on CT. MEDICAL HISTORY : Carcinoma, colon. Carcinoma, prostate. Pulmonary embolism. SURGICAL HISTORY : Colon resection. Appendectomy. ENCOUNTER: Subsequent ACUITY: 1 week PAIN SCORE: 3/10 LOCATION: abdomen FINDINGS: There has been interval significant improvement of diffuse ileus compared to the previous day's exami [facility]. No bowel dilatation is noted. Degenerative changes and scoliosis of the thoracolumbar spine a re noted. A nasogastric has its tip in the stomach. Degenerative changes are noted involving the hip joints bilaterally. CONCLUSION: Significant interval improvement of diffuse ileus compared to the previous day's examination. Hiram Winston MD on July 08, 2017 at 9:35 Board Certified Radiologist. This report was verified electronically.
--- NOTE | 2017-07-08 10:25 | MB ---
cc: José Miguel Chi MD, Roxy MD DATE: 07/08/2017 REASON FOR GI: Evaluation abdominal pain, nausea, vomiting, small-bowel obstruction. HISTORY OF PRESENT ILLNESS: This is a pleasant 86-year-old male followed by Dr. Pacheco. Approximately 2 weeks ago, the patient underwent colonoscopy as he has a history of colon cancer with previous right hemicolectomy dating back to 1995. On examination of his colon, he was found to have mild diverticulitis. Apparently, the anastomosis was patent at that time. The patient was started on Augmentin 3 times a day after, but shortly after completing this, he began having nausea and vomiting, some diarrhea, abdominal cramping and abdominal distention. He presented to the emergency room. CT revealed a possible small bowel obstruction versus ileus. An NG tube was placed. He is feeling much better at this time. He is passing flatus. He was seen by Dr. Read of the surgical staff. Dr. Read felt that the patient may have had some sort of reaction to antibiotic therapy with a resultant ileus. 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 The patient is doing well at this time. Dr. Read has ordered clamping of the NG tube and he ordered abdominal x-rays as well today. At this time, I was asked to evaluate him further. PAST MEDICAL HISTORY: Includes a history of colon cancer, previous resection, prostate cancer, post radiation therapy, history of DVT. MEDICATIONS: Include aspirin and recent Augmentin therapy. ALLERGIES: NONE. FAMILY HISTORY: Father of lung cancer. Mother of bladder cancer. SOCIAL HISTORY: Stopped smoking in 1980. He drinks 1 alcoholic beverage a day. No illicit drug use. REVIEW OF SYSTEMS: A 12-point review of systems is as stated in HPI, otherwise unremarkable. He denies hematochezia or significant weight loss. LABORATORY DATA: CBC is unremarkable. Chemistries: Sodium is 134, potassium 3.9. Liver enzymes were normal. Lipase was 68. CT study once again revealed the possibility of ileus versus small bowel obstruction. There was no evidence of diverticulitis per CT criteria. Abdominal film recently obtained revealed significant improvement in the dilated loops of small bowel. PHYSICAL EXAMINATION: GENERAL: Pleasant, well-developed male, alert and oriented x 3 in no acute distress. VITAL SIGNS: Stable. He is afebrile. HEENT: Normocephalic, atraumatic. Sclerae are anicteric. Oral mucosa is dry. NECK: Supple. NG tube is in place with clear bilious secretions. CARDIAC: S1, S2, regular rhythm. CHEST: Clear. ABDOMEN: Mild distention. Bowel sounds are present throughout all quadrants. No masses or organomegaly. There is no rebound tenderness. EXTREMITIES: Without clubbing, cyanosis, or edema. RECTAL: Deferred. IMPRESSION: 1. History of colon cancer resected many years ago with right hemicolectomy. 2. Recent colonoscopy findings of mild diverticulitis. 3. Post-Augmentin therapy. 4. Ileus versus partial small-bowel obstruction. 5. Nausea and vomiting, resolved. PLAN: Agree with Dr. Read's assessment at this time. It appears that he has had improvement of his radiological and clinical symptoms. Would probably try to start p.o. liquids and clamp his NG tube, follow his response and hopefully have him discharged soon. I have discussed this with the patient. The patient should follow up with Dr. Pacheco who knows the patient quite well and recently performed colonoscopy with the above aforementioned findings. Probiotics may also be worthwhile moving forward. I will thank you for this consult. MD JEN Knight/LAURA , 09:59 AM , 10:24 AM
[2017-07-08 12:00] VITALS: BP 152/79; PULSE 88; RESP 16; TEMP 97.2; O2SAT 95
[2017-07-08 16:00] VITALS: BP 103/88; PULSE 96; RESP 16; TEMP 96.5; O2SAT 95
[2017-07-08 20:00] VITALS: BP 135/65; PULSE 98; RESP 18; TEMP 96.7; O2SAT 90
[2017-07-09] VITALS: BP 136/65; PULSE 80; RESP 18; TEMP 96.4; O2SAT 96
[2017-07-09] MEDS: NS + KCL 20 MEQ INJ 1,000 ML IV SCH ×2 (00:17→14:41)
[2017-07-09 08:00] VITALS: BP 138/64; PULSE 91; RESP 18; TEMP 97; O2SAT 92
--- NOTE | 2017-07-09 09:11 | RADRPT ---
EXAM DATE/TIME: 07/09/2017 08:49 [facility] COMPARISON: CT ABDOMEN & PELVIS W/O CONTRAST, July 07, 2017, 16:14. ABDOMEN FLAT & UPRIGHT, July 08, 2017, 8:1 4. INDICATIONS : Small bowel obstruction MEDICAL HISTORY : Carcinoma, colon. Carcinoma, prostate. Pulmonary embolism SURGICAL HISTORY : Colon resection. Appendectomy ENCOUNTER: Subsequent ACUITY: 1 week PAIN SCORE: 3/10 LOCATION: Bilateral abdomen FINDINGS: Nasogastric tube across the GE junction. The sidehole is not. Air-fluid levels in stomach and proxi mal small bowel. Minimal colonic gas. There is no free air. CONCLUSION: Interval improvement when compared to 07/08. Air-fluid levels persist in small bowel. Robert Linda MD FACR on July 09, 2017 at 9:08 Board Certified Radiologist. This report was verified electronically.
--- NOTE | 2017-07-09 10:58 | HHI.PR ---
Subjective Remarks Patient seen and examined today for follow-up of small bowel obstruction. Patient states that he other getting up and walking around more. He is tolerating liquid diet. He states that he did have bowel movement yesterday. Objective Vitals Vital Signs Date Time Temp Pulse Resp B/P (MAP) Pulse Ox O2 Delivery O2 Flow Rate FiO2 07/09/17 08:00 97.0 91 18 138/64 (88) 92 07/09/17 00:00 96.4 80 18 136/65 (88) 96 07/08/17 20:00 96.7 98 18 135/65 (88) 90 07/08/17 16:00 96.5 96 16 103/88 (93) 95 07/08/17 12:00 97.2 88 16 152/79 (103) 95 I/O 07/08/17 07/08/17 07/08/17 07/09/17 07/09/17 07/09/17 07:00 15:00 23:00 07:00 15:00 23:00 Intake Total 1000 ml 540 ml Output Total 325 ml 200 ml 350 ml Balance 675 ml -200 ml 190 ml Intake Oral 0 ml 540 ml IV Total 1000 ml Output Urine Total 325 ml 200 ml 350 ml # Voids 2 # Bowel Movements 0 2 Result Diagram: 07/08/1751607/08/17 05 Objective Remarks GENERAL: Well-developed, well-nourished, in no acute distress. alert and orientated HEENT: Head is normocephalic without any lesions or masses noted. Facial features are symmetric. Eyes: Extraocular muscles are intact. Conjunctivae were clear. NG tube in place NECK: Supple without any masses. Trachea midline no deviation. No JVD, no bruits are appreciated CARDIAC: Regular rhythm, regular rate. S1/S2 are heard. No murmurs gallops or rubs. LUNGS: Clear to auscultation bilaterally. No wheeze, rhonchi or rales. No use of accessory muscles on inspiration or expiration. ABDOMEN: Soft, nontender. No distention, bowel sounds heard in all 4 quadrants. No organomegaly or masses. Negative rebound, negative guarding EXTREMITIES: No edema, pulses are equal bilaterally. No cyanosis or clubbing NEUROLOGY: Mood and affect appear appropriate. Cranial nerves II through XII grossly intact. Moving all extremities, speech is clear Urinary Catheter: No Vascular Central Line Catheter: No A/P Assessment and Plan Small bowel obstruction Patient just recently had colonoscopy and history of colon resection which are possible etiologies of his bowel obstruction Advance to full liquid diet per surgery NG tube clamped per surgery Continue IV fluids Continue IV pain control Consulted general surgery is following the patient awaiting further recommendations Consult Dr. Pacheco, patient is known to him Flat and upright abdominal x-rays indicates interval improvement when compared to 07/08. Air-fluid levels persistent small bowel DVT prevention Sequential compression devices Discharge Planning Discharge planning 24-48 hours if patient continues to improve Mau Simms Jul 09, 2017 10:58
[2017-07-09 12:00] VITALS: BP 130/70; PULSE 74; RESP 16; TEMP 98.6; O2SAT 92
[2017-07-09] MEDS: FAMOTIDINE 20 MG TAB PO SCH (12:06)
--- NOTE | 2017-07-09 12:34 | HHI.PR ---
Subjective Subjective Notes "I had a small bowel movement today, and my stomach is much smaller" Objective Vitals/I&O Vital Signs Date Time Temp Pulse Resp B/P (MAP) Pulse Ox O2 Delivery O2 Flow Rate FiO2 07/09/17 08:00 97.0 91 18 138/64 (88) 92 07/07/17 18:58 Nasal Cannula 2.00 Lungs: Clear Abdomen: Non-tender, Other (Distended) A/P Assessment and Plan Small bowel obstruction; NG is clamped and pt. on full liquids. Abdominal films still show dilated loops small bowel Will check NG residuals this afternoon; if low, will remove NG and advance diet tomorrow If he has high residuals, NG back to [facility] and plan surgery early in week after transfer to [facility]. If he fails diet advancement after NG removed, will need surgery at the [facility]. Patient aware of plan; discussed with medical team. Maurilio Freitas MD Jul 09, 2017 12:34
[2017-07-09 16:00] VITALS: PULSE 86; TEMP 100
[2017-07-09 17:30] VITALS: BP 144/71; PULSE 92; RESP 18; TEMP 100.1; O2SAT 87
[2017-07-09 20:00] VITALS: BP 150/72; PULSE 84; RESP 18; TEMP 99.3; O2SAT 93
[2017-07-10] VITALS: BP 136/63; PULSE 78; RESP 18; TEMP 97.3; O2SAT 93
[2017-07-10] MEDS: FAMOTIDINE 20 MG TAB PO SCH ×3 (00:30→23:58)
[2017-07-10] MEDS: NS + KCL 20 MEQ INJ 1,000 ML IV SCH ×2 (00:30→08:50)
--- NOTE | 2017-07-10 07:49 | HHI.PR ---
Subjective Remarks Patient seen and examined today for follow-up of small bowel obstruction. Patient resting comfortably in bed. States that he had 2 bowel movements yesterday. Residuals were 30 cc last evening. Patient NG tube is still clamped. Follow-up KUB for resolution. T-max 100.1 Objective Vitals Vital Signs Date Time Temp Pulse Resp B/P (MAP) Pulse Ox O2 Delivery O2 Flow Rate FiO2 07/10/17 00:00 97.3 78 18 136/63 (87) 93 07/09/17 20:00 99.3 84 18 150/72 (98) 93 07/09/17 17:30 100.1 92 18 144/71 (95) 87 07/09/17 16:00 100.0 86 07/09/17 12:00 98.6 74 16 130/70 (90) 92 07/09/17 08:00 97.0 91 18 138/64 (88) 92 I/O 07/09/17 07/09/17 07/09/17 07/10/17 07/10/17 07/10/17 07:00 15:00 23:00 07:00 15:00 23:00 Intake Total 540 ml 1300 ml 4869 ml 852 ml Output Total 350 ml 250 ml 200 ml 750 ml Balance 190 ml 1050 ml 4669 ml 102 ml Intake Oral 540 ml 300 ml 300 ml 0 ml IV Total 1000 ml 4569 ml 852 ml Output Urine Total 350 ml 200 ml 200 ml 750 ml Gastric Drainage Total 50 ml # Voids 2 # Bowel Movements 2 1 Result Diagram: 07/08/1751607/08/17516 Objective Remarks GENERAL: Well-developed, well-nourished, in no acute distress. alert and orientated HEENT: Head is normocephalic without any lesions or masses noted. Facial features are symmetric. Eyes: Extraocular muscles are intact. Conjunctivae were clear. NG tube in place and clamped NECK: Supple without any masses. Trachea midline no deviation. No JVD, no bruits are appreciated CARDIAC: Regular rhythm, regular rate. S1/S2 are heard. No murmurs gallops or rubs. LUNGS: Clear to auscultation bilaterally. No wheeze, rhonchi or rales. No use of accessory muscles on inspiration or expiration. ABDOMEN: Soft, nontender. No distention, bowel sounds heard in all 4 quadrants. No organomegaly or masses. Negative rebound, negative guarding EXTREMITIES: No edema, pulses are equal bilaterally. No cyanosis or clubbing NEUROLOGY: Mood and affect appear appropriate. Cranial nerves II through XII grossly intact. Moving all extremities, speech is clear Urinary Catheter: No Vascular Central Line Catheter: No A/P Assessment and Plan Small bowel obstruction Patient just recently had colonoscopy and history of colon resection which are possible etiologies of his bowel obstruction Advance to full liquid diet per surgery, possible advance to full diet if KUB improved and cleared by surgery NG tube clamped per surgery, residual gastric content with 50 mL as documented in the computer. Continue IV fluids Continue IV pain control Consulted general surgery is following the patient Consult Dr. Pacheco, patient is known to him Flat and upright abdominal x-rays indicates interval Improvement. Persistent minimal air-fluid levels remain. Discussed with surgery who indicated that can remove NG tube and advance diet. Patient has complications or vomits will need to transfer to the main hospital for surgery DVT prevention Sequential compression devices Discharge Planning Discharge planning 24-48 hours if patient continues to improve Mau Simms Jul 10, 2017 07:49
[2017-07-10 08:00] VITALS: BP 149/69; PULSE 76; RESP 20; TEMP 97.7; O2SAT 93
--- NOTE | 2017-07-10 08:21 | RADRPT ---
EXAM DATE/TIME: 07/10/2017 07:49 [facility] COMPARISON: ABDOMEN FLAT & UPRIGHT, July 09, 2017, 8:49. INDICATIONS : Small bowel obstruction MEDICAL HISTORY : Carcinoma, colon. Carcinoma, prostate. Pulmonary embolism SURGICAL HISTORY : Colon resection. Appendectomy ENCOUNTER: Initial ACUITY: 1 week PAIN SCORE: 0/10 LOCATION: Bilateral abdomen FINDINGS: The nasogastric tube is just across the GE junction. Persistent air-fluid levels without dilatation remaining. There is no free air. Lung base is are clear. Stable trace blunting on the right. CONCLUSION: Improvement. Persistent minimal air-fluid levels remain. Robert Linda MD FACR on July 10, 2017 at 8:19 Board Certified Radiologist. This report was verified electronically.
[2017-07-10 12:00] VITALS: BP 147/86; PULSE 83; RESP 20; TEMP 97; O2SAT 92
[2017-07-10 16:00] VITALS: BP 158/79; PULSE 88; RESP 20; TEMP 97; O2SAT 92
--- NOTE | 2017-07-10 16:03 | HHI.PR ---
Subjective Subjective Notes small bms, no nausea, minimal ng residuals Objective Vitals/I&O Vital Signs Date Time Temp Pulse Resp B/P (MAP) Pulse Ox O2 Delivery O2 Flow Rate FiO2 07/10/17 12:00 97.0 83 20 147/86 (106) 92 07/07/17 18:58 Nasal Cannula 2.00 Lungs: Clear Abdomen: Other (soft mild ttp, non distended) A/P Assessment and Plan Small bowel obstruction; NG is clamped and pt tolerating liquids with bowel fxn PLAN AXR still with some dilation but improving siginificantly ok for reg soft diet, agree with ng tube removal continue abdominal exams and non operative mgnt Yosi Nick MD Jul 10, 2017 16:03
[2017-07-10 20:00] VITALS: BP 142/84; PULSE 84; RESP 20; TEMP 97.8; O2SAT 93
[2017-07-11] VITALS: BP 130/83; PULSE 88; RESP 20; TEMP 96.8; O2SAT 85
--- NOTE | 2017-07-11 06:55 | RADRPT ---
EXAM DATE/TIME: 07/11/2017 06:21 [facility] COMPARISON: ABDOMEN FLAT & UPRIGHT, July 10, 2017, 7:49. INDICATIONS : Follow up on abdominal obstruction. MEDICAL HISTORY : Carcinoma, colon. Carcinoma, prostate. Pulmonary embolism. SURGICAL HISTORY : Colon resection. Appendectomy. ENCOUNTER: Subsequent ACUITY: 4 - 6 days PAIN SCORE: 5/10 LOCATION: abdominal FINDINGS: Supine and upright views of the abdomen were performed. There has been interval removal of an NGT. T he abdominal bowel gas pattern is normal. No air fluid levels are seen. No abnormal masses, calcifi cations, or organomegaly is seen. The visualized lower lungs are clear. No evidence of free intrape ritoneal gas. The osseous structures are unremarkable. CONCLUSION: Interval removal of an NGT. Normal bowel gas pattern. No evidence of obstruction.. Sharita Hicks MD on July 11, 2017 at 6:52 Board Certified Radiologist. This report was verified electronically.
[2017-07-11 07:50] VITALS: BP 149/67; PULSE 82; RESP 20; TEMP 97.5; O2SAT 91
--- NOTE | 2017-07-11 09:14 | HHI.PR ---
cc: Amadou Read MD Subjective Subjective Notes DAILY PROGRESS NOTE FOR SURGICAL ATTENDING, DR. AMADOU READ "Today is a good day to go home!" Feeling good; no issues Objective Vitals/I&O Vital Signs Date Time Temp Pulse Resp B/P (MAP) Pulse Ox O2 Delivery O2 Flow Rate FiO2 07/11/17 08:36 Room Air 07/11/17 07:50 97.5 82 20 149/67 (94) 91 07/11/17 00:00 2.00 Radiology Last Impressions Abdomen X-Ray 07/11/17 0600 Signed Impressions: Service Date/Time: Tuesday, July 11, 2017 06:21 - CONCLUSION: Interval removal of an NGT. Normal bowel gas pattern. No evidence of obstruction.. Sharita Hicks MD Abdomen/Pelvis CT 07/07/17 1520 Signed Impressions: Service Date/Time: Thursday, July 07, 2017 16:14 - CONCLUSION: 1. Diffuse fluid-filled dilated loops of small bowel are noted suggesting small bowel obstruction or ileus. Clinical correlation is recommended. 2. Uncomplicated colonic diverticulosis. 3. Cholelithiasis. 4. Degenerative changes and scoliosis of the lumbar spine. 5. Emphysematous changes within the lung bases. Hiram Winston MD Cardiovascular: Regular Lungs: Clear Abdomen: Non-distended, Non-tender Extremities: No edema A/P Problem List: (1) Ileus ICD Codes: K56.7 - Ileus, unspecified Status: Resolved (2) Asymptomatic gallstones ICD Codes: K80.20 - Calculus of gallbladder without cholecystitis without obstruction Status: Chronic (3) History of colon cancer ICD Codes: Z85.038 - Personal history of other malignant neoplasm of large intestine Status: Chronic (4) History of colon resection ICD Codes: Z90.49 - Acquired absence of other specified parts of digestive tract Status: Chronic Assessment and Plan 86 year old male with SBO; resolved -Tolerating regular diet -+BM -Doing well -Gen Surgery clear for DC Attending Statement NOTE FOR SURGICAL ATTENDING, DR. AMADOU READ Abdomen soft Tolerating diet Having bowel movements Okay for discharge Follow up with gastroenterology as previously arranged I agree with above assessment and plan. The exam, history, and the medical decision-making described in the above note were completed with the assistance of the mid-level provider. I reviewed and agree with the findings presented. I attest that I had a [id number] encounter with the patient on the same day, and personally performed and documented my assessment and findings in the medical record. The following services were provided during this hospital visit: Chart data review, vital sign assessments/reviewing monitor data Review of consultations notes if present. Medication orders/review and/or management Ordering and/or reviewing lab tests Ordering and/or interpreting/reviewing x-rays and/or diagnostic studies Care of the patient and discussion of the patient with the care team Documentation time To help prompt me to consider important information that might be impacting today's encounter and assessment, Information from prior notes written by myself or my colleagues may have been "brought forward/copy and pasted" into today's note. Lilibeth White/Patient Safety Tech MAYE Jul 11, 2017 09:13 Amadou Read MD Jul 11, 2017 09:45
[2017-07-11 11:00] VITALS: BP 137/68; PULSE 86; RESP 20; TEMP 97.7; O2SAT 92
--- NOTE | 2017-07-11 11:06 | HHI.DCPOC ---
Discharge Care Plan Diagnosis: (1) Small bowel obstruction Goals to Promote Your Health * To prevent worsening of your condition and complications * To maintain your health at the optimal level Directions to Meet Your Goals Take your medications as prescribed Follow your dietary instruction Follow activity as directed Keep your appointments as scheduled Take your immunizations and boosters as scheduled If your symptoms worsen call your PCP, if no PCP go to Urgent Care Center or Emergency Room Smoking is Dangerous to Your Health. Avoid second hand smoke Call the 24-hour hour crisis hotline for domestic abuse at Sadie Evans MD Jul 11, 2017 11:06
--- NOTE | 2017-07-11 11:08 | HHI.DS ---
Discharge Summary Admission Date Jul 07, 2017 at 17:49 Discharge Date: Jul 11, 2017 Admitting Diagnosis Small bowel obstruct (1) Small bowel obstruction ICD Code: K56.609 - Unspecified intestinal obstruction, unspecified as to partial versus complete obstruction Diagnosis: Principal Status: Acute Procedures none Brief History - From Admission 86-year-old male with known history of colon cancer, prostate cancer who presented to the emergency department because abdominal pain, bloating. Patient states that on June 20 he underwent colonoscopy with Dr. Pacheco. Patient underwent prep with mag citrate at that time. He was found to have diverticulosis and was started on antibiotics. Shortly after he completed the antibiotics which was roughly 6 days ago he started developing abdominal pain, bloating. He was passing gas and then he started developing some bowel incontinence and then watery diarrhea. He states that his last bowel movement was 2 days ago. On Tuesday he did have one episode of nausea vomiting which made him feel much better. He has had decreased appetite, not eating that well. Because of the pain was pressure getting worse she came to emergency department for evaluation. Patient had workup done and found to have significant small bowel obstruction. It was recommended by the ER physician the patient be admitted for further evaluation and management. CBC/BMP: 07/08/17 0517 07/08/17 0517 Imaging Last Impressions Abdomen X-Ray 07/11/17 0600 Signed Impressions: Service Date/Time: Tuesday, July 11, 2017 06:21 - CONCLUSION: Interval removal of an NGT. Normal bowel gas pattern. No evidence of obstruction.. Sharita Hicks MD Abdomen/Pelvis CT 07/07/17 1520 Signed Impressions: Service Date/Time: June 16:14 - CONCLUSION: 1. Diffuse fluid-filled dilated loops of small bowel are noted suggesting small bowel obstruction or ileus. Clinical correlation is recommended. 2. Uncomplicated colonic diverticulosis. 3. Cholelithiasis. 4. Degenerative changes and scoliosis of the lumbar spine. 5. Emphysematous changes within the lung bases. Hiram Winston MD PE at Discharge GENERAL: Well-developed, well-nourished, in no acute distress. alert and orientated HEENT: Head is normocephalic without any lesions or masses noted. Facial features are symmetric. Eyes: Extraocular muscles are intact. Conjunctivae were clear. NG tube in place and clamped NECK: Supple without any masses. Trachea midline no deviation. No JVD, no bruits are appreciated CARDIAC: Regular rhythm, regular rate. S1/S2 are heard. No murmurs gallops or rubs. LUNGS: Clear to auscultation bilaterally. No wheeze, rhonchi or rales. No use of accessory muscles on inspiration or expiration. ABDOMEN: Soft, nontender. No distention, bowel sounds heard in all 4 quadrants. No organomegaly or masses. Negative rebound, negative guarding EXTREMITIES: No edema, pulses are equal bilaterally. No cyanosis or clubbing NEUROLOGY: Mood and affect appear appropriate. Cranial nerves II through XII grossly intact. Moving all extremities, speech is clear Pt update on day of discharge Patient doing well, eating well with good return of bowel function Discharge plans discussed with patient, spouse and [facility] RN Hospital Course Patient is a 86-year-old gentleman with a history of colon cancer. He recently had some antibiotics for acute diverticulitis and then had some abdominal pain with vomiting and was found to have acute small bowel obstruction. Conservative treatment did help and this resolved. Surgery was consulted for continued assistance in management and patient did well was discharged home Pt Condition on Discharge: Good Discharge Disposition: Discharge Home Discharge Time: <= 30 minutes Discharge Instructions Follow up Referrals: PCP Follow-up - 1 Week Continued Medications: Aspirin (Aspirin Low Dose) 81 Mg Chew 81 MG PO DAILY, TAB 0 Refills Sadie Evans MD Jul 11, 2017 11:08
== END 2017-07-11 12:20 | disposition home or self-care (01) | DRG 390 ==
LOC: PHED 14:25 → PHEDA 17:49 → PH3B 20:09
PROVIDERS: ADMIT Hospitalist; ATTEND Hospitalist
DX: K56.7 Ileus, unspecified (principal); H91.90 Unspecified hearing loss, unspecified ear; T36.0X5A Adverse effect of penicillins, initial encounter; K57.90 Diverticulosis of intestine, part unspecified, without perforation or abscess without bleeding; K80.20 Calculus of gallbladder without cholecystitis without obstruction; Z79.82 Long term (current) use of aspirin; Z85.46 Personal history of malignant neoplasm of prostate; Z85.038 Personal history of other malignant neoplasm of large intestine; Z90.49 Acquired absence of other specified parts of digestive tract; Z92.3 Personal history of irradiation; Z87.891 Personal history of nicotine dependence; Z86.718 Personal history of other venous thrombosis and embolism; R19.7 Diarrhea, unspecified; R10.30 Lower abdominal pain, unspecified
CPT/HCPCS: 74019; 74176; 80048; 80053; 81001; 83690; 85025; 96361; 96374; J2405; J3480; J7030

== ENCOUNTER → 2017-08-09 | Outpatient (CLI) | payer MEDICARE ==
[~2017-08-09] MED LIST changes: +ASPI81CH6 PO; -OFLO.3%A AD
[2017-08-09 10:30] LABS: HEMATOCRIT 42.4 % (39.0-51.0); HEMOGLOBIN 14.2 GM/DL (13.0-17.0); MEAN CELL VOLUME 90.1 FL (80.0-100.0); MEAN CORPUSCULAR HEMOGLOBIN 30.2 PG (27.0-34.0); MEAN CORPUSCULAR HGB CONC 33.6 % (32.0-36.0); MEAN PLATELET VOLUME 8.2 FL (7.0-11.0); PLATELET COUNT 287 TH/MM3 (150-450); RED BLOOD COUNT 4.71 MIL/MM3 (4.50-5.90); RED CELL DISTRIBUTION WIDTH 13.9 % (11.6-17.2); WHITE BLOOD COUNT 8.7 TH/MM3 (4.0-11.0)
[2017-08-09 11:21] LABS: BLOOD UREA NITROGEN 16 MG/DL (7-18); CREATININE 1.05 MG/DL (0.60-1.30); GLOMERULAR FILTRATION RATE 67 ML/MIN (>89); GLUCOSE,FASTING 88 MG/DL (74-99); TOTAL PROTEIN 7.5 GM/DL (6.4-8.2)
[2017-08-09 11:22] LABS: ALBUMIN 3.5 GM/DL (3.4-5.0); ALKALINE PHOSPHATASE 72 U/L (45-117); ALT (GPT) 16 U/L (12-78); AST (GOT) 20 U/L (15-37); BICARBONATE 27.2 MEQ/L (21.0-32.0); CALCIUM 9.3 MG/DL (8.5-10.1); CHLORIDE 105 MEQ/L (98-107); CHOLESTEROL 189 MG/DL (120-200); SODIUM (NA) 140 MEQ/L (136-145); TOTAL BILIRUBIN ADULT 0.6 MG/DL (0.2-1.0); TRIGLYCERIDES 102 MG/DL (42-150)
[2017-08-09 11:23] LABS: CHOLESTEROL/ HDL RATIO 3.92 RATIO; HDL CHOLESTEROL 48.2 MG/DL (40.0-60.0); LDL CHOLESTEROL 120 MG/DL (0-99)
== END ==
LOC: PLAB 08:09
PROVIDERS: ATTEND Family Medicine
DX: E78.4 Other hyperlipidemia (principal); C61 Malignant neoplasm of prostate; C18.9 Malignant neoplasm of colon, unspecified; I83.10 Varicose veins of unspecified lower extremity with inflammation
CPT/HCPCS: 36415; 80053; 80061; 84443; 85027

== ENCOUNTER → 2017-08-19 | Outpatient (CLI) | payer MEDICARE ==
--- NOTE | 2017-08-29 10:04 | RSPPFT ---
DATE OF PROCEDURE: 08/19/17 COMMENTS: VOLUMES DYNAMIC: FVC and FEV1 mildly reduced. STATIC: TLC mildly reduced; FRC and RV normal. FLOWS: FEV1% mildly reduced; FEF 25-75 severely reduced. DIFFUSION: Severely reduced. FLOW VOLUME LOOP: Pattern of variable intrathoracic airways obstruction. IMPRESSION: Mild to moderate obstructive ventilatory defect with no hyperinflation. There is a severe reduction in diffusion capacity. No significant improvement post-bronchodilator noted.
== END ==
LOC: HRSP 09:52
PROVIDERS: ATTEND Internal Medicine
DX: R06.02 Shortness of breath (principal)
CPT/HCPCS: 36600; 82805; 94060; 94618; 94726; 94729